=== PATIENT | male | born 1970 | race Caucasian/White ===

== ENCOUNTER 2019-09-07 15:29 | Inpatient (IN) | payer OTHER ==
--- NOTE | 2019-09-07 19:59 | HP ---
CIWA Score Nausea/Vomitin Muscle Tremors: 4-Moderate,w/Arms Extend Anxiety: 4-Mod. Anxious/Guarded Agitation: 2 Paroxysmal Sweats: No Perspiration Orientation: 1-Uncertain about Date Tacttile Disturbances: 2-Mild Itch/Numbness/Burn Auditory Disturbances: 0-None Visual Disturbances: 0-None Headache: 0-None Present CIWA-Ar Total Score: 15 - Admission Criteria OASAS Guidelines: Admission for Medically Managed Detox: Requires at least one of the followin. CIWA greater than 12 2. Seizures within the past 24 hours 3. Delirium tremens within the past 24 hours 4. Hallucinations within the past 24 hours 5. Acute intervention needed for co occurring medical disorder 6. Acute intervention needed for co occurring psychiatric disorder 7. Severe withdrawal that cannot be handled at a lower level of care (continued vomiting, continued diarrhea, abnormal vital signs) requiring intravenous medication and/or fluids 8. Admission ROS S - HPI Allergies/Adverse Reactions: Allergies Allergy/AdvReac Type Severity Reaction Status Date / Time No Known Allergies Allergy Verified 09/07/19 20:08 History of Present Illness: 49 y.o. male reports 1.5 pints vodka /day x 3 months ,latest use today , denies seizures ,blackouts , + falls while intoxicated " a few days ago " hit left knee , r elbow did not go to the hospital . 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 Loss EENT: reports: No Symptoms Reported, Other (no teeth) Respiratory: reports: See HPI Cardiac: reports: No Symptoms Reported GI: reports: Diarrhea, Nausea, Poor Appetite, Vomiting : reports: No Symptoms Reported Musculoskeletal: reports: Back Pain (chronic) Integumentary: reports: See HPI (left knee) Neuro: reports: Tremors, Unsteady Gait Endocrine: reports: See HPI Hematology: reports: No Symptoms Reported Psychiatric: reports: Agitated, Anxious, Depressed Patient History - Smoking Cessation Smoking history: Current every day smoker Have you smoked in the past 12 months: Yes Hx Chewing Tobacco Use: No Initiated information on smoking cessation: Yes 'Breaking Loose' booklet given: 09/07/19 - Substances abused Alcohol Substance route: Oral Frequency: Daily Amount used: 1 [employer] Age of first use: 18 Date of last use: 09/07/19 Admission Physical Exam S - Physical General Appearance: Yes: Disheveled, Moderate Distress, Tremorous, Irritable, Anxious HEENTM: Yes: EOMI, Normocephalic, Muffled/Hoarse Voice, Other (edentulous) Respiratory: Yes: Chest Non-Tender, Lungs Clear, Decreased Breath Sounds, No Respiratory Distress, No Accessory Muscle Use Neck: Yes: No masses,lesions,Nodules, Trachea in good position Cardiology: Yes: Regular Rhythm, Regular Rate, S1, S2, Tachycardia Abdominal: Yes: Non Tender, Soft, Surgical Scar (left upper quadrant) Back: Yes: Normal Inspection Musculoskeletal: Yes: Other (staggering gait) Extremities: Yes: Normal Range of Motion, Non-Tender, Tremors Neurological: Yes: Alert, Depressed Affect, Other (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 - Diagnostic (1) Alcohol use disorder Current Visit: Yes Status: Chronic (2) Nicotine dependence Current Visit: Yes Status: Chronic Qualifiers: Nicotine product type: cigarettes Breathalyzer - Breathalyzer Breathalyzer: 0.006 Urine Drug Screen - Test Device Lot number: [id number] Expiration date: 06/03/21 - Control Is test valid?: Yes - Results Drug screen NEGATIVE: Yes Inpatient Rehab Admission - Rehab Decision to Admit Inpatient rehab admission?: No
[2019-09-07] MEDS ORDERED: MENTHOL/PHENOL 1 EACH UD MM PRN (20:13)
[2019-09-07] MEDS ORDERED: ACETAMINOPHEN 325 MG TABLET (FP) PO PRN (20:13)
[2019-09-07] MEDS ORDERED: MAGNESIUM CITRATE 300 ML BOTTLE PO PRN (20:13)
[2019-09-07] MEDS ORDERED: IBUPROFEN 400 MG TABLET (FP) PO PRN (20:13)
[2019-09-07] MEDS ORDERED: BISMUTH SUBSALICYLATE 524 MG/30 ML UD PO PRN (20:13)
[2019-09-07] MEDS ORDERED: MAGNESIUM HYDROX 2400MG/30ML ORAL SUSPENSION 30 ML CUP PO PRN (20:13)
[2019-09-07] MEDS ORDERED: MAG HYDROX/AL HYDROX/SIMETH 30 ML UNIT-DOSE CUP PO PRN (20:13)
[2019-09-07] MEDS ORDERED: chlordiazePOXIDE HCL 25 MG CAPSULE PO ONE (20:16)
[2019-09-07 20:49] VITALS: BMI 17.4
[2019-09-07] MEDS: THIAMINE HCL 100 MG TABLET (FP) PO SCH (21:16)
[2019-09-07] MEDS: chlordiazePOXIDE HCL 25 MG CAPSULE PO SCH (23:45)
[2019-09-08] MEDS: chlordiazePOXIDE HCL 25 MG CAPSULE PO SCH ×4 (06:55→22:18)
[2019-09-08] MEDS: NICOTINE POLACRILEX 2 MG GUM BUC PRN ×6 (07:03→22:19)
[2019-09-08] MEDS: PRENATAL VITAMINS W/ FOLIC ACID TABLET (FP) PO SCH (10:28)
--- NOTE | 2019-09-08 14:36 | PN ---
S CIWA - CIWA Score Nausea/Vomitin Muscle Tremors: 2 Anxiety: 2 Agitation: 2 Paroxysmal Sweats: 1-Minimal Palms Moist Orientation: 0-Oriented Tacttile Disturbances: 1-Very Mild Itch/Numbness Auditory Disturbances: 0-None Visual Disturbances: 0-None Headache: 2-Mild CIWA-Ar Total Score: 12 BHS Progress Note (SOAP) Subjective: alert,irritable,anxious,interrupted sleep,tremor,pain in the body,nausea Objective: 09/08/19 14:35 Vital Signs Temperature 96.6 F L 09/08/19 08:30 Pulse Rate 119 H 09/08/19 08:30 Respiratory Rate 20 09/08/19 08:30 Blood Pressure 94/72 09/08/19 08:30 O2 Sat by Pulse Oximetry (%) Assessment: 09/08/19 14:36 withdrawal symptom Plan: continue detox librium regimen
[2019-09-08] MEDS: chlordiazePOXIDE HCL 25 MG CAPSULE PO PRN (19:25)
[2019-09-08] MEDS: hydrOXYzine PAMOATE 25 MG CAPSULE (FP) PO PRN (19:25)
[2019-09-08] MEDS: THIAMINE HCL 100 MG TABLET (FP) PO SCH (22:18)
[2019-09-08] MEDS: MELATONIN 5 MG TABLETS PO PRN (22:18)
[2019-09-09] MEDS: chlordiazePOXIDE HCL 25 MG CAPSULE PO SCH ×4 (06:05→22:28)
[2019-09-09] MEDS: NICOTINE POLACRILEX 2 MG GUM BUC PRN ×5 (06:06→22:29)
[2019-09-09 09:15] LABS: HEMOGLOBIN 13.4 GM/dL (11.7-16.9); MCH 35.3 pg (25.7-33.7); MCHC 34.3 g/dl (32.0-35.9); MEAN PLT VOLUME 9.3 fl (7.5-11.1); PLATELET COUNT 204 K/MM3 (134-434); RBC 3.79 M/mm3 (4.00-5.60); RDW 14.9 % (11.9-15.9); WHITE BLOOD COUNT 8.1 K/mm3 (4.0-10.0)
[2019-09-09 09:29] LABS: ALBUMIN 3.5 g/dl (3.4-5.0); BILIRUBIN,TOTAL 1.1 mg/dL (0.2-1); BLOOD UREA NITROGEN 15.1 mg/dL (7-18); CREATININE 0.8 mg/dL (0.55-1.3); POTASSIUM 4.4 mmol/L (3.5-5.1)
[2019-09-09] MEDS: PRENATAL VITAMINS W/ FOLIC ACID TABLET (FP) PO SCH (10:34)
[2019-09-09] MEDS: hydrOXYzine PAMOATE 25 MG CAPSULE (FP) PO PRN ×2 (10:34→22:29)
[2019-09-09] MEDS ORDERED: INSULIN SLIDING SCALE (NOVOLOG) 1 VIAL SQ ONE (11:50)
[2019-09-09] MEDS: INSULIN SLIDING SCALE (NOVOLOG) 1 VIAL SQ SCH ×3 (11:51→22:32)
[2019-09-09] MEDS: chlordiazePOXIDE HCL 25 MG CAPSULE PO PRN (12:40)
--- NOTE | 2019-09-09 13:16 | PN ---
S CIWA - CIWA Score Nausea/Vomitin-No Nausea/No Vomiting Muscle Tremors: 2 Anxiety: 3 Agitation: 0-Normal Activity Paroxysmal Sweats: 3 Orientation: 0-Oriented Tacttile Disturbances: 0-None Auditory Disturbances: 0-None Visual Disturbances: 0-None Headache: 2-Mild CIWA-Ar Total Score: 10 S Progress Note (SOAP) Subjective: c/o sweats, anxiety, and headache. Objective: 09/09/19 13:10 Vital Signs 09/09/19 09/09/19 06:38 08:46 Temperature 96.0 F L 96.6 F L Pulse Rate 97 H 102 H Respiratory 18 20 Rate Blood Pressure 102/73 103/69 Laboratory Last Values WBC 8.1 K/mm3 (4.0-10.0) 09/09/19 07:40 RBC 3.79 M/mm3 (4.00-5.60) L 09/09/19 07:40 Hgb 13.4 GM/dL (11.7-16.9) 09/09/19 07:40 Hct 39.0 % (35.4-49) 09/09/19 07:40 MCV 103.0 fl (80-96) H 09/09/19 07:40 MCH 35.3 pg (25.7-33.7) H 09/09/19 07:40 MCHC 34.3 g/dl (32.0-35.9) 09/09/19 07:40 RDW 14.9 % (11.9-15.9) 09/09/19 07:40 Plt Count 204 K/MM3 (134-434) 09/09/19 07:40 MPV 9.3 fl (7.5-11.1) 09/09/19 07:40 Sodium 131 mmol/L (136-145) L 09/09/19 07:40 Potassium 4.4 mmol/L (3.5-5.1) 09/09/19 07:40 Chloride 95 mmol/L (98-107) L 09/09/19 07:40 Carbon Dioxide 26 mmol/L (21-32) 09/09/19 07:40 Anion Gap 11 MMOL/L (8-16) 09/09/19 07:40 BUN 15.1 mg/dL (7-18) 09/09/19 07:40 Creatinine 0.8 mg/dL (0.55-1.3) 09/09/19 07:40 Est GFR (CKD-EPI)AfAm 121.57 09/09/19 07:40 Est GFR (CKD-EPI)NonAf 104.89 09/09/19 07:40 POC Glucometer > 600 UNITS (80-120) 09/09/19 11:42 Random Glucose 493 mg/dL (74-106) H* 09/09/19 07:40 Calcium 9.0 mg/dL (8.5-10.1) 09/09/19 07:40 Total Bilirubin 1.1 mg/dL (0.2-1) H 09/09/19 07:40 AST 24 U/L (15-37) 09/09/19 07:40 ALT 23 U/L (13-61) 09/09/19 07:40 Alkaline Phosphatase 180 U/L (45-117) H 09/09/19 07:40 Total Protein 8.0 g/dl (6.4-8.2) 09/09/19 07:40 Albumin 3.5 g/dl (3.4-5.0) 09/09/19 07:40 RPR Titer Nonreactive (NONREACTIVE) 09/09/19 07:40 Labs noted with elevated random glucose of 493mg/dl, bgm is >600mg/dl 09/09/19 13:11 Assessment: 09/09/19 13:12 AOX3, in no acute respiratory distress. Full ROM, ambulating in the unit. Withdrawal symptoms. Uncontrolled DM. No s/s of hypo/hyperglycemia noted. Pt states he takes metformin 1000mg po bid but has not been taking it for over 3months now. Will start tx and will need metformin prescription upon discharge and to follow-up with his PMD. Explained tx regimen to pt and he verbalized understanding. 09/09/19 13:12 09/09/19 13:18 Plan: continue detox. metformin 1000mg po bid, bgm ACHS/Novolog insulin sliding scale. Monitor for signs of hypo/hyperglycemia.
[2019-09-09] MEDS: metFORMIN HCL 500 MG TABLET (FP) PO SCH (17:04)
[2019-09-09] MEDS: BACITRACIN 15 GM TUBE TOPICAL OINTMENT TP SCH (18:09)
[2019-09-09] MEDS: ACETAMINOPHEN 325 MG TABLET (FP) PO PRN (18:09)
[2019-09-09] MEDS: THIAMINE HCL 100 MG TABLET (FP) PO SCH (22:28)
[2019-09-09] MEDS: MELATONIN 5 MG TABLETS PO PRN (22:32)
[2019-09-10] MEDS ORDERED: chlordiazePOXIDE HCL 10 MG CAPSULE PO PRN
[2019-09-10] MEDS: NICOTINE POLACRILEX 2 MG GUM BUC PRN ×8 (03:49→22:15)
[2019-09-10] MEDS: chlordiazePOXIDE HCL 10 MG CAPSULE PO SCH ×4 (06:00→22:15)
[2019-09-10] MEDS: metFORMIN HCL 500 MG TABLET (FP) PO SCH ×2 (06:00→16:50)
[2019-09-10] MEDS: hydrOXYzine PAMOATE 25 MG CAPSULE (FP) PO PRN ×4 (06:02→22:16)
[2019-09-10] MEDS: INSULIN SLIDING SCALE (NOVOLOG) 1 VIAL SQ SCH ×4 (06:50→22:18)
[2019-09-10] MEDS ORDERED: INSULIN SLIDING SCALE (NOVOLOG) 1 VIAL SQ ONE ×2 (07:08→11:09)
[2019-09-10] MEDS: PRENATAL VITAMINS W/ FOLIC ACID TABLET (FP) PO SCH (10:46)
[2019-09-10] MEDS: BACITRACIN 15 GM TUBE TOPICAL OINTMENT TP SCH (10:47)
--- NOTE | 2019-09-10 13:18 | PN ---
[facility] CIWA - CIWA Score Nausea/Vomitin-No Nausea/No Vomiting Muscle Tremors: 3 Anxiety: 2 Agitation: 0-Normal Activity Paroxysmal Sweats: 1-Minimal Palms Moist Orientation: 0-Oriented Tacttile Disturbances: 0-None Auditory Disturbances: 0-None Visual Disturbances: 2-Mild Sensitivity Headache: 0-None Present CIWA-Ar Total Score: 8 S Progress Note (SOAP) Subjective: 49 years old male admitted on 09/07/19 for alcohol withdrawal sx management treating with librium detox regiment feeling ok today discuss aftercare with staff prefers to go to [facility] encourage the patient to attend behavior and psychosocial therapies groups and meetings as part of recovery Objective: 09/10/19 13:19 Vital Signs Temperature 96.1 F L 09/10/19 08:55 Pulse Rate 87 09/10/19 08:55 Respiratory Rate 18 09/10/19 08:55 Blood Pressure 125/77 09/10/19 08:55 O2 Sat by Pulse Oximetry (%) Laboratory Last Values WBC 8.1 K/mm3 (4.0-10.0) 09/09/19 07:40 RBC 3.79 M/mm3 (4.00-5.60) L 09/09/19 07:40 Hgb 13.4 GM/dL (11.7-16.9) 09/09/19 07:40 Hct 39.0 % (35.4-49) 09/09/19 07:40 MCV 103.0 fl (80-96) H 09/09/19 07:40 MCH 35.3 pg (25.7-33.7) H 09/09/19 07:40 MCHC 34.3 g/dl (32.0-35.9) 09/09/19 07:40 RDW 14.9 % (11.9-15.9) 09/09/19 07:40 Plt Count 204 K/MM3 (134-434) 09/09/19 07:40 MPV 9.3 fl (7.5-11.1) 09/09/19 07:40 Sodium 131 mmol/L (136-145) L 09/09/19 07:40 Potassium 4.4 mmol/L (3.5-5.1) 09/09/19 07:40 Chloride 95 mmol/L (98-107) L 09/09/19 07:40 Carbon Dioxide 26 mmol/L (21-32) 09/09/19 07:40 Anion Gap 11 MMOL/L (8-16) 09/09/19 07:40 BUN 15.1 mg/dL (7-18) 09/09/19 07:40 Creatinine 0.8 mg/dL (0.55-1.3) 09/09/19 07:40 Est GFR (CKD-EPI)AfAm 121.57 09/09/19 07:40 Est GFR (CKD-EPI)NonAf 104.89 09/09/19 07:40 POC Glucometer 347 UNITS (80-120) 09/10/19 11:07 Random Glucose 493 mg/dL (74-106) H* 09/09/19 07:40 Calcium 9.0 mg/dL (8.5-10.1) 09/09/19 07:40 Total Bilirubin 1.1 mg/dL (0.2-1) H 09/09/19 07:40 AST 24 U/L (15-37) 09/09/19 07:40 ALT 23 U/L (13-61) 09/09/19 07:40 Alkaline Phosphatase 180 U/L (45-117) H 09/09/19 07:40 Total Protein 8.0 g/dl (6.4-8.2) 09/09/19 07:40 Albumin 3.5 g/dl (3.4-5.0) 09/09/19 07:40 RPR Titer Nonreactive (NONREACTIVE) 09/09/19 07:40 lab noted 09/10/19 13:23 average 20 units of insulin sq coverage begin glimepiride 4 mg po am Assessment: 09/10/19 13:23 alcohol withdrawal Plan: librium regiment
[2019-09-10] MEDS: THIAMINE HCL 100 MG TABLET (FP) PO SCH (22:15)
[2019-09-10] MEDS: MELATONIN 5 MG TABLETS PO PRN (22:15)
[2019-09-11] MEDS: hydrOXYzine PAMOATE 25 MG CAPSULE (FP) PO PRN ×5 (05:18→22:06)
[2019-09-11] MEDS: chlordiazePOXIDE HCL 10 MG CAPSULE PO SCH ×2 (05:18→17:36)
[2019-09-11] MEDS: metFORMIN HCL 500 MG TABLET (FP) PO SCH ×2 (06:32→17:37)
[2019-09-11] MEDS: INSULIN SLIDING SCALE (NOVOLOG) 1 VIAL SQ SCH ×4 (06:33→22:07)
[2019-09-11] MEDS ORDERED: INSULIN SLIDING SCALE (NOVOLOG) 1 VIAL SQ ONE (06:33)
[2019-09-11] MEDS: GLIMEPIRIDE 4 MG TABLET PO SCH (08:19)
[2019-09-11] MEDS: NICOTINE POLACRILEX 2 MG GUM BUC PRN ×6 (08:54→22:13)
--- NOTE | 2019-09-11 09:21 | PN ---
S CIWA - CIWA Score Nausea/Vomitin-No Nausea/No Vomiting Muscle Tremors: 1-None Visible, but [place] Anxiety: 3 Agitation: 0-Normal Activity Paroxysmal Sweats: 1-Minimal Palms Moist Orientation: 0-Oriented Tacttile Disturbances: 0-None Auditory Disturbances: 0-None Visual Disturbances: 1-Very Mild Sensitivity Headache: 0-None Present CIWA-Ar Total Score: 6 BHS Progress Note (SOAP) Subjective: 49 years old male admitted on 09/07/19 for alcohol withdrawal sx management treating with librium detox regiment feeling better today sitting on the edge of the bed eating breakfast alert oriented x 3 speech clearly participating in therapeutic groups and meetings anxious about leaving a protective sober environment Objective: 09/11/19 09:23 Vital Signs Temperature 96.2 F L 09/11/19 06:52 Pulse Rate 64 09/11/19 06:52 Respiratory Rate 18 09/11/19 06:52 Blood Pressure 119/78 09/11/19 06:52 O2 Sat by Pulse Oximetry (%) Laboratory Last Values WBC 8.1 K/mm3 (4.0-10.0) 09/09/19 07:40 RBC 3.79 M/mm3 (4.00-5.60) L 09/09/19 07:40 Hgb 13.4 GM/dL (11.7-16.9) 09/09/19 07:40 Hct 39.0 % (35.4-49) 09/09/19 07:40 MCV 103.0 fl (80-96) H 09/09/19 07:40 MCH 35.3 pg (25.7-33.7) H 09/09/19 07:40 MCHC 34.3 g/dl (32.0-35.9) 09/09/19 07:40 RDW 14.9 % (11.9-15.9) 09/09/19 07:40 Plt Count 204 K/MM3 (134-434) 09/09/19 07:40 MPV 9.3 fl (7.5-11.1) 09/09/19 07:40 Sodium 131 mmol/L (136-145) L 09/09/19 07:40 Potassium 4.4 mmol/L (3.5-5.1) 09/09/19 07:40 Chloride 95 mmol/L (98-107) L 09/09/19 07:40 Carbon Dioxide 26 mmol/L (21-32) 09/09/19 07:40 Anion Gap 11 MMOL/L (8-16) 09/09/19 07:40 BUN 15.1 mg/dL (7-18) 09/09/19 07:40 Creatinine 0.8 mg/dL (0.55-1.3) 09/09/19 07:40 Est GFR (CKD-EPI)AfAm 121.57 09/09/19 07:40 Est GFR (CKD-EPI)NonAf 104.89 09/09/19 07:40 POC Glucometer 389 UNITS (80-120) 09/11/19 05:17 Random Glucose 493 mg/dL (74-106) H* 09/09/19 07:40 Calcium 9.0 mg/dL (8.5-10.1) 09/09/19 07:40 Total Bilirubin 1.1 mg/dL (0.2-1) H 09/09/19 07:40 AST 24 U/L (15-37) 09/09/19 07:40 ALT 23 U/L (13-61) 09/09/19 07:40 Alkaline Phosphatase 180 U/L (45-117) H 09/09/19 07:40 Total Protein 8.0 g/dl (6.4-8.2) 09/09/19 07:40 Albumin 3.5 g/dl (3.4-5.0) 09/09/19 07:40 RPR Titer Nonreactive (NONREACTIVE) 09/09/19 07:40 lab noted long history of diabetes treated with metformin and glimepiride finger stick with insulin coverage glimepiride resume on 09/10/19 Assessment: 09/11/19 09:27 alcohol withdrawal Plan: librium regiment
[2019-09-11] MEDS: PRENATAL VITAMINS W/ FOLIC ACID TABLET (FP) PO SCH (10:12)
[2019-09-11] MEDS: BACITRACIN 15 GM TUBE TOPICAL OINTMENT TP SCH (10:13)
[2019-09-11] MEDS: ACETAMINOPHEN 325 MG TABLET (FP) PO PRN (22:05)
[2019-09-11] MEDS: THIAMINE HCL 100 MG TABLET (FP) PO SCH (22:05)
[2019-09-11] MEDS: MELATONIN 5 MG TABLETS PO PRN (22:06)
[2019-09-12] MEDS ORDERED: chlordiazePOXIDE HCL 10 MG CAPSULE PO ONE (05:00)
[2019-09-12] MEDS: metFORMIN HCL 500 MG TABLET (FP) PO SCH (06:15)
[2019-09-12] MEDS: GLIMEPIRIDE 4 MG TABLET PO SCH (06:16)
[2019-09-12] MEDS: hydrOXYzine PAMOATE 25 MG CAPSULE (FP) PO PRN (06:18)
[2019-09-12] MEDS: NICOTINE POLACRILEX 2 MG GUM BUC PRN (06:19)
[2019-09-12 06:38] VITALS: BP 113/75; PULSE 63; TEMP 96.9
[2019-09-12] MEDS: INSULIN SLIDING SCALE (NOVOLOG) 1 VIAL SQ SCH (06:50)
--- NOTE | 2019-09-12 15:20 | DS ---
[facility] Detox Discharge Summary Admission Date: 09/07/19 Discharge Date: 09/12/19 - History Present History: Alcohol Dependence Additional Comments: 49 years old male admitted on 09/07/19 for alcohol withdrawal sx management treated with librium detox regiment Mr Delgado has completed librium regiment and is tolerated well alert oriented x 3 cardiac s1s2 regular rate rhythm respiratory clear lungs bilaterally on auscultation skin warm and dry Pertinent Past History: time for discharge 30 minutes - Physical Exam Results Vital Signs: Vital Signs Temperature 96.9 F L 09/12/19 06:37 Pulse Rate 63 09/12/19 06:37 Respiratory Rate 18 09/12/19 06:37 Blood Pressure 113/75 09/12/19 06:37 O2 Sat by Pulse Oximetry (%) Pertinent Admission Physical Exam Findings: alcohol withdrawal Vital Signs Temperature 96.9 F L 09/12/19 06:37 Pulse Rate 63 09/12/19 06:37 Respiratory Rate 18 09/12/19 06:37 Blood Pressure 113/75 09/12/19 06:37 O2 Sat by Pulse Oximetry (%) Laboratory Last Values WBC 8.1 K/mm3 (4.0-10.0) 09/09/19 07:40 RBC 3.79 M/mm3 (4.00-5.60) L 09/09/19 07:40 Hgb 13.4 GM/dL (11.7-16.9) 09/09/19 07:40 Hct 39.0 % (35.4-49) 09/09/19 07:40 MCV 103.0 fl (80-96) H 09/09/19 07:40 MCH 35.3 pg (25.7-33.7) H 09/09/19 07:40 MCHC 34.3 g/dl (32.0-35.9) 09/09/19 07:40 RDW 14.9 % (11.9-15.9) 09/09/19 07:40 Plt Count 204 K/MM3 (134-434) 09/09/19 07:40 MPV 9.3 fl (7.5-11.1) 09/09/19 07:40 Sodium 131 mmol/L (136-145) L 09/09/19 07:40 Potassium 4.4 mmol/L (3.5-5.1) 09/09/19 07:40 Chloride 95 mmol/L (98-107) L 09/09/19 07:40 Carbon Dioxide 26 mmol/L (21-32) 09/09/19 07:40 Anion Gap 11 MMOL/L (8-16) 09/09/19 07:40 BUN 15.1 mg/dL (7-18) 09/09/19 07:40 Creatinine 0.8 mg/dL (0.55-1.3) 09/09/19 07:40 Est GFR (CKD-EPI)AfAm 121.57 09/09/19 07:40 Est GFR (CKD-EPI)NonAf 104.89 09/09/19 07:40 POC Glucometer 327 UNITS (80-120) 09/12/19 06:14 Random Glucose 493 mg/dL (74-106) H* 09/09/19 07:40 Calcium 9.0 mg/dL (8.5-10.1) 09/09/19 07:40 Total Bilirubin 1.1 mg/dL (0.2-1) H 09/09/19 07:40 AST 24 U/L (15-37) 09/09/19 07:40 ALT 23 U/L (13-61) 09/09/19 07:40 Alkaline Phosphatase 180 U/L (45-117) H 09/09/19 07:40 Total Protein 8.0 g/dl (6.4-8.2) 09/09/19 07:40 Albumin 3.5 g/dl (3.4-5.0) 09/09/19 07:40 RPR Titer Nonreactive (NONREACTIVE) 09/09/19 07:40 T.pallidum Ab Interpret Cancelled 09/09/19 07:40 lab noted long history of diabetes patient will continue follow up with primary endocrainologist for glucose level - Treatment Hospital Course: Detox Protocol Followed, Detoxed Safely, Responded well, Discharged Condition Good, Rehab Referral Accepted Patient has Accepted a [facility] Referral [facility]: [facility] - Medication Discharge Medications: Ambulatory Orders NK [No Known Home Medication] 09/07/19 - Diagnosis (1) Diabetes Status: Acute Qualifiers: Diabetes mellitus type: type 2 Diabetes mellitus shelter insulin use: with shelter use Diabetes mellitus complication status: with other specified complication Qualified Code(s): E11.69 - Type 2 diabetes mellitus with other specified complication; Z79.4 - assisted (current) use of insulin (2) Alcohol use disorder Status: Acute (3) Nicotine dependence Status: Acute Qualifiers: Nicotine product type: cigarettes Substance use status: in withdrawal Qualified Code(s): F17.213 - Nicotine dependence, cigarettes, with withdrawal - AMA Did Patient Leave Against Medical Advice: No CIWA Score - CIWA Score Nausea/Vomitin-No Nausea/No Vomiting Muscle Tremors: None Anxiety: 2 Agitation: 0-Normal Activity Paroxysmal Sweats: No Perspiration Orientation: 0-Oriented Tacttile Disturbances: 0-None Auditory Disturbances: 0-None Visual Disturbances: 0-None Headache: 0-None Present CIWA-Ar Total Score: 2
== END 2019-09-12 09:02 | disposition home or self-care (01) | DRG 775 ==
LOC: YASAS 15:29 → Y3N 20:16
PROVIDERS: ADMIT Allergy & Immunology; ATTEND Allergy & Immunology
PROC: HZ2ZZZZ Detoxification Services for Substance Abuse Treatment (ICD-10-PCS; principal; 2019-09-07)
DX: F10.230 Alcohol dependence with withdrawal, uncomplicated (principal); F17.210 Nicotine dependence, cigarettes, uncomplicated; J44.9 Chronic obstructive pulmonary disease, unspecified; E11.65 Type 2 diabetes mellitus with hyperglycemia; Z79.4 Long term (current) use of insulin; Z87.39 Personal history of other diseases of the musculoskeletal system and connective tissue; Z90.81 Acquired absence of spleen
CPT/HCPCS: 36415; 80053; 82962; 85027; 86593

== ENCOUNTER 2019-09-07 22:08 | Emergency (ER) | payer OTHER ==
[2019-09-07 22:18] VITALS: TEMP 98.3; BMI 18.4
--- NOTE | 2019-09-07 22:47 | PDOC ---
History of Present Illness - General Chief Complaint: Injury Stated Complaint: RT ELBOW PAIN Time Seen by Provider: 09/07/19 22:46 Past History - Past Medical History Allergies/Adverse Reactions: Allergies Allergy/AdvReac Type Severity Reaction Status Date / Time No Known Allergies Allergy Verified 09/07/19 22:15 Home Medications: Ambulatory Orders NK [No Known Home Medication] 09/07/19 Asthma: No Cardiac Disorders: No COPD: No Diabetes: Yes GI Disorders: No Disorders: No Seizures: No - Surgical History Abdominal Surgery: Yes (SPLEENECTOMY) - Psycho Social/Smoking Cessation Hx Smoking History: Unknown if ever smoked Have you smoked in the past 12 months: Yes Number of Cigarettes Smoked Daily: 10 'Breaking Loose' booklet given: 09/07/19 Hx Alcohol Use: Yes *Physical Exam - Vital Signs Last Vital Signs Temp Pulse Resp BP Pulse Ox 98.3 F 120 H 18 100/70 100 09/07/19 22:13 09/07/19 22:13 09/07/19 22:13 09/07/19 22:13 09/07/19 22:13 09/07/19 23:24 Last name is pronounced, "[id number]" 49 y/o male PMH DM, COPD, sciatica, 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 Pt was sent in from [facility] etoh detox for RIGHT UE/elbow deformity. He states that he was drinking his usual daily amount of 1/2 pint vodka when he blacked out. He woke up a short time after (cannot recall how much) and had lower back pain, RIGHT elbow pain, and LEFT knee abrasion. He says this never happened before. He denies being assaulted. He reports he has never experienced w/drawl or DT. Denies FNVD, chills, and constipation No new meds/herbs, drugs/supplements No recent illness, sick contacts, or recent travel No LOC, tongue biting, tremor, aura Fam hx: Mother, paranoid schizophrenia Surgical hx: splenectomy, c4 disc repair Social hx: 1/2 ppd for 30 years contemplative state of cessations; 1/2 pint vodka daily; occasional marijuana use Sexual hx: Not sexually active. Has one 16 y/o daughter. No h/o STI. CIWA 5: +1 mild anx, and +4 tremors with outstretched hands REVIEW OF SYSTEMS CONSTITUTIONAL: Absent: fever, chills, diaphoresis, generalized weakness, malaise, loss of appetite, weight change HEENT: Absent: rhinorrhea, nasal congestion, throat pain, throat swelling, difficulty swallowing, mouth swelling, ear pain, eye pain, visual changes CARDIOVASCULAR: Absent: chest pain, syncope, palpitations, irregular heart rate, lightheadedness, peripheral edema RESPIRATORY: Absent: cough, shortness of breath, dyspnea with exertion, orthopnea, wheezing, stridor, hemoptysis GASTROINTESTINAL: Absent: abdominal pain, abdominal distension, nausea, vomiting, diarrhea, constipation, melena, hematochezia GENITOURINARY: Absent: dysuria, frequency, urgency, hesitancy, hematuria, flank pain, genital pain MUSCULOSKELETAL: Absent: myalgia, arthralgia, joint swelling, back pain, neck pain SKIN: LEFT knee pain Absent: rash, itching, pallor HEMATOLOGIC/IMMUNOLOGIC: Absent: easy bleeding, easy bruising, lymphadenopathy, frequent infections ENDOCRINE: Absent: unexplained weight gain, unexplained weight loss, heat intolerance, cold intolerance NEUROLOGIC: Absent: headache, focal weakness or paresthesias, dizziness, unsteady gait, seizure, mental status changes, bladder or bowel incontinence PSYCHIATRIC: Absent: anxiety, depression, suicidal or homicidal ideation, hallucinations. GENERAL: AO x3 NAD HEAD: NCAT EYES: [place], EOMI, sclera anicteric, conjunctiva clear. No ptosis. ENT: Ears normal, nares patent, oropharynx clear without exudates, DRY mucous membranes. NECK: Trachea midline, full range of motion, supple. LUNGS: Diffuse wheezes in ant and post lung caballero, no crackles, no accessory muscle use. HEART: Soft heart sounds. RRR, S1, S2 without murmur, rub or gallop. ABDOMEN: Soft, nontender, nondistended, normoactive bowel sounds, no guarding, no rebound, no hepatosplenomegaly, no masses. EXTREMITIES: RIGHT elbow deformity: swelling at olecranon. LEFT knee abrasion, no dc, healed/red-brown appearance . 2+ pulses, warm, well-perfused, no edema. NEUROLOGICAL: Cranial nerves II through XII grossly intact. Strength 5/5 in UE and LE in both distal and proximal flexors. Brachial reflex 2+ BL. Patellar reflex 2+ BL. No dysdiadochokinesia. FTN POSITIVE. Normal speech. Gait no appreciated. PSYCH: Normal mood, normal affect. SKIN: LEFT forearm cross tattoo. Warm, dry, normal turgor, no rashes or lesions noted # Mechanical fall VS etoh intoxication VS - CBC, CMP, UA, EKG - PT/INR, type & screen - NS 1 L bolus - RIGHT elbow xray - CT head - CT c spine - Tylenol 650 mg po once 09/08/19 01:00 Pt complaining of tremors. 5 mg chlordiazepoxide provided Repeat HR 87 09/08/19 05:14 Imaging with no acute changes Plan to dc so pt can cont. care at [facility] Treatment Course - LABORATORY CBC & Chemistry Diagram: 09/08/19 00:20 09/08/19 04:10 Discharge - Discharge Information Problems reviewed: Yes Clinical Impression/Diagnosis: Alcohol use disorder Fall Qualifiers: Encounter type: subsequent encounter Qualified Code(s): W19.XXXD - Unspecified fall, subsequent encounter Disposition: HOME - Admission No - Additional Discharge Information Plan of Treatment: YOUR VISIT You came to the hospital because you were experiencing pain from a fall. You were seen in the emergency department for care of these symptoms. You were given medication for pain and had some imaging performed, which as all negative. You are now stable and may return home. MEDICATIONS Please continue to take your home medications as prescribed. ADDITIONAL CARE Please make an appointment to see your primary care provider week from today. ADDITIONAL INFORMATION Please call 911 or come directly to the emergency department if you experience recurrence of the symptoms that brought you to the hospital, unusual headache, vision change, shortness of breath, chest pain, numbness, tingling, loss of alertness/awareness, loss of function, unusual bleeding or any alarming symptoms. - Follow up/Referral - Patient Discharge Instructions - Post Discharge Activity
--- NOTE | 2019-09-07 23:17 | PDOC ---
*Physical Exam - Vital Signs Last Vital Signs Temp Pulse Resp BP Pulse Ox 98.3 F 120 H 18 100/70 100 09/07/19 22:13 09/07/19 22:13 09/07/19 22:13 09/07/19 22:13 09/07/19 22:13 ED Treatment Course - LABORATORY CBC & Chemistry Diagram: 09/08/19 00:20 09/08/19 04:10 Medical Decision Making - Medical Decision Making 09/07/19 23:12 Patient seen as pre-attending with Dr. Goodson (Resident) and Dr. Garcia (Attending) 49 y/o male here from [facility] c/o L elbow pain Actively intoxicated @ presentation - reports fall [address] head/C-spine in addition to L elbow (protruding olecranon on PE) No known h/o DT's' last alcohol intake was 1/2 pint vodka earlier today Tachycardic (HR 120) @ triage, HR 80's s/p analgesia w/Tylenol 09/08/19 01:08 S/p Librium Resting comfortably 09/08/19 05:[address]/C-spine negative My read of elbow X-ray shows no dislocation, no anterior sail sign/posterior fat pad D/C to [facility] Discharge - Discharge Information Problems reviewed: Yes Clinical Impression/Diagnosis: Alcohol use disorder Fall Qualifiers: Encounter type: subsequent encounter Qualified Code(s): W19.XXXD - Unspecified fall, subsequent encounter Condition: Stable Disposition: HOME - Additional Discharge Information Plan of Treatment: YOUR VISIT You came to the hospital because you were experiencing pain from a fall. You were seen in the emergency department for care of these symptoms. You were given medication for pain and had some imaging performed, which as all negative. You are now stable and may return home. MEDICATIONS Please continue to take your home medications as prescribed. ADDITIONAL CARE Please make an appointment to see your primary care provider week from today. ADDITIONAL INFORMATION Please call 911 or come directly to the emergency department if you experience recurrence of the symptoms that brought you to the hospital, unusual headache, vision change, shortness of breath, chest pain, numbness, tingling, loss of alertness/awareness, loss of function, unusual bleeding or any alarming symptoms. - Follow up/Referral - Patient Discharge Instructions - Post Discharge Activity
[2019-09-07] MEDS ORDERED: SODIUM CHLORIDE 1,000 ML IV STA (23:22)
[2019-09-08] MEDS ORDERED: ACETAMINOPHEN 325 MG TABLET (FP) PO ONE (00:36)
[2019-09-08] MEDS ORDERED: ACETAMINOPHEN 325 MG TABLET (FP) ONE (00:36)
[2019-09-08] MEDS ORDERED: chlordiazePOXIDE 5 MG CAPSULE PO ONE (00:43)
[2019-09-08 00:56] LABS: BASO % 0.8 % (0-2.0); EOS % 1.1 % (0-4.5); HEMATOCRIT 38.7 % (35.4-49); HEMOGLOBIN 13.4 GM/dL (11.7-16.9); LYMPH % 20.4 % (8-40); MCH 35.4 pg (25.7-33.7); MCHC 34.6 g/dl (32.0-35.9); MEAN CELL VOLUME 102.2 fl (80-96); MEAN PLT VOLUME 9.3 fl (7.5-11.1); MONO % 15.9 % (3.8-10.2); NEUT % 61.8 % (42.8-82.8); PLATELET COUNT 204 K/MM3 (134-434); RBC 3.78 M/mm3 (4.00-5.60); RDW 15.3 % (11.9-15.9); WHITE BLOOD COUNT 10.6 K/mm3 (4.0-10.0)
[2019-09-08 01:07] LABS: INR 0.94 (0.83-1.09); PROTHROMBIN TIME (PATIENT) 11.1 SEC (9.7-13.0)
--- NOTE | 2019-09-08 01:47 | PDOC ---
Attending Attestation - Resident Resident Name: Tristian Xavier - ED Attending Attestation I have performed the following: I have examined & evaluated the patient, The case was reviewed & discussed with the resident, I agree w/resident's findings & plan, Exceptions are as noted - HPI HPI: 09/08/19 01:43 See resident HPI - Physicial Exam PE: 09/08/19 01:44 Agree with documented exam - Medical Decision Making 09/08/19 01:48 49M DM, COPD, CVA, etoh, sent from [facility] with RUE pain, swelling, persistent pain s/p fall 3 days ago f/u imaging, labs analgesia re-eval dispo per clinical course
[2019-09-08] MEDS ORDERED: chlordiazePOXIDE 5 MG CAPSULE ONE (02:37)
[2019-09-08 06:37] VITALS: BP 127/94; PULSE 105
--- NOTE | 2019-09-08 11:08 | EKG ---
Test Reason : Blood Pressure : / mmHG Vent. Rate : 091 BPM Atrial Rate : 091 BPM P-R Int : 158 ms QRS Dur : 084 ms QT Int : 364 ms P-R-T Axes : 060 065 062 degrees QTc Int : 447 ms NORMAL SINUS RHYTHM PEAKED T WAVES CLINICAL CORRELATION IS RECOMMENDED NO PREVIOUS ECGS AVAILABLE Confirmed by TANIA BRYAN MD ([id number]) on 09/08/2019 11:08:19 AM Referred By: Confirmed By:TANIA BRYAN MD
== END 2019-09-08 06:36 | disposition home or self-care (01) ==
LOC: JER 22:08
PROC: 3E0337Z Introduction of Electrolytic and Water Balance Substance into Peripheral Vein, Percutaneous Approach (ICD-10-PCS; principal; 2019-09-07)
DX: F10.10 Alcohol abuse, uncomplicated (principal); M54.5 Low back pain; S80.212A Abrasion, left knee, initial encounter; W19.XXXA Unspecified fall, initial encounter; Y93.89 Activity, other specified; Y92.89 Other specified places as the place of occurrence of the external cause; Y99.8 Other external cause status; J44.9 Chronic obstructive pulmonary disease, unspecified; E11.9 Type 2 diabetes mellitus without complications; F17.210 Nicotine dependence, cigarettes, uncomplicated; I69.854 Hemiplegia and hemiparesis following other cerebrovascular disease affecting left non-dominant side
CPT/HCPCS: 36415; 70450-TC; 72125-TC; 73070-TC-RT-FY; 85025; 85610; 86850; 86900; 86901; 93005; 93010; 96360; 99285-25; J7030

== ENCOUNTER 2022-04-23 11:16 | Inpatient (IN) | payer OTHER ==
[2022-04-23 12:56] VITALS: BMI 15.3
[2022-04-23] MEDS ORDERED: BENZOCAINE/MENTHOL (CHLORASEPTIC ) LOZENGE MM PRN (13:52)
[2022-04-23] MEDS ORDERED: ACETAMINOPHEN 325 MG TABLET (FP) PO PRN ×2 (13:52)
[2022-04-23] MEDS ORDERED: BISMUTH SUBSALICYLATE 262 MG/15 ML BTL PO PRN (13:52)
[2022-04-23] MEDS ORDERED: MAGNESIUM CITRATE 300 ML BOTTLE PO PRN (13:52)
[2022-04-23] MEDS ORDERED: MAG HYDROX/AL HYDROX/SIMETH 30 ML UNIT-DOSE CUP PO PRN (13:52)
[2022-04-23] MEDS ORDERED: IBUPROFEN 600 MG TABLET (FP) PO PRN (13:52)
[2022-04-23] MEDS ORDERED: ONDANSETRON *ODT* 4 MG TABLET SL PRN (13:52)
[2022-04-23] MEDS ORDERED: LOPERAMIDE HCL 2 MG CAPSULE PO PRN (13:52)
[2022-04-23] MEDS ORDERED: DICYCLOMINE HCL 10 MG CAPSULE PO PRN (13:52)
[2022-04-23] MEDS ORDERED: IBUPROFEN 400 MG TABLET (FP) PO PRN (13:52)
[2022-04-23] MEDS ORDERED: NALOXONE HCL (KLOXXADO) 8 MG SPRAY NS PRN (13:52)
[2022-04-23] MEDS ORDERED: NICOTINE 10 MG CARTRIDGE (INHALER) IH PRN (13:52)
[2022-04-23] MEDS ORDERED: MAGNESIUM HYDROX 2400MG/30ML ORAL SUSPENSION 30 ML CUP PO PRN (13:52)
[2022-04-23] MEDS ORDERED: methaDONE HCL 10 MG TABLET (FOR DETOX USE ONLY) PO ONE (13:52)
[2022-04-23] MEDS ORDERED: cloNIDine HCL 0.1 MG TABLET PO PRN (13:52)
[2022-04-23] MEDS: PRENATAL VITAMINS W/ FOLIC ACID TABLET (FP) PO SCH (14:00)
[2022-04-23] MEDS: chlordiazePOXIDE HCL 25 MG CAPSULE PO SCH ×2 (17:36→22:18)
[2022-04-23] MEDS ORDERED: MELATONIN 5 MG TABLETS PO SCH (22:00)
[2022-04-23] MEDS: THIAMINE HCL 100 MG TABLET (FP) PO SCH (22:18)
[2022-04-23] MEDS: NICOTINE POLACRILEX 2 MG GUM BUC PRN (22:20)
[2022-04-24] MEDS: chlordiazePOXIDE HCL 25 MG CAPSULE PO SCH (05:09)
[2022-04-24] MEDS: NICOTINE POLACRILEX 2 MG GUM BUC PRN ×5 (08:38→22:11)
[2022-04-24 09:55] LABS: HEMOGLOBIN 13.7 GM/dL (11.7-16.9); MCH 31.6 pg (25.7-33.7); MCHC 34.1 g/dl (32.0-35.9); MEAN CELL VOLUME 92.5 fl (80-96); MEAN PLT VOLUME 8.2 fl (7.5-11.1); PLATELET COUNT 416 10^3/uL (134-434); RBC 4.33 M/mm3 (4.00-5.60); RDW 14.6 % (11.9-15.9); WHITE BLOOD COUNT 12.2 K/mm3 (4.0-10.0)
[2022-04-24 10:07] LABS: CALCIUM 9.7 mg/dL (8.5-10.1)
[2022-04-24 10:09] LABS: ALBUMIN 3.6 g/dl (3.4-5.0); BLOOD UREA NITROGEN 7.5 mg/dL (7-18)
[2022-04-24] MEDS: METHOCARBAMOL 500 MG TABLET PO PRN (10:11)
[2022-04-24] MEDS: PRENATAL VITAMINS W/ FOLIC ACID TABLET (FP) PO SCH (10:11)
[2022-04-24 10:12] LABS: CREATININE 0.7 mg/dL (0.55-1.3)
[2022-04-24 10:13] LABS: TOT PROT 7.2 g/dl (6.4-8.2)
[2022-04-24 10:14] LABS: BILIRUBIN,TOTAL 0.6 mg/dL (0.2-1)
[2022-04-24] MEDS: diazePAM 5 MG TABLET PO SCH ×3 (10:42→22:04)
[2022-04-24] MEDS: INSULIN SLIDING SCALE (NOVOLOG) 1 VIAL SQ SCH ×3 (11:39→22:11)
[2022-04-24] MEDS: diazePAM 5 MG TABLET PO PRN ×2 (13:23→19:16)
[2022-04-24] MEDS ORDERED: ALBUTEROL SO4 0.083% IH SOL 2.5 MG/3 ML VIAL.NEB. NEB PRN (13:56)
[2022-04-24] MEDS ORDERED: SUVOREXANT 10 MG TABLET PO PRN (22:00)
[2022-04-24] MEDS: THIAMINE HCL 100 MG TABLET (FP) PO SCH (22:04)
[2022-04-25] MEDS: METHOCARBAMOL 500 MG TABLET PO PRN (00:48)
[2022-04-25] MEDS: diazePAM 5 MG TABLET PO PRN ×2 (02:30→12:15)
[2022-04-25] MEDS ORDERED: chlordiazePOXIDE HCL 25 MG CAPSULE PO SCH (05:00)
[2022-04-25] MEDS: diazePAM 5 MG TABLET PO SCH ×2 (05:52→10:17)
[2022-04-25 06:34] VITALS: RESP 17
[2022-04-25] MEDS: INSULIN SLIDING SCALE (NOVOLOG) 1 VIAL SQ SCH ×2 (07:17→11:09)
[2022-04-25] MEDS ORDERED: methaDONE HCL 10 MG TABLET (FOR DETOX USE ONLY) PO ONE (10:00)
[2022-04-25] MEDS: PRENATAL VITAMINS W/ FOLIC ACID TABLET (FP) PO SCH (10:17)
[2022-04-25] MEDS: NICOTINE POLACRILEX 2 MG GUM BUC PRN ×2 (10:21→12:17)
[2022-04-25 13:31] VITALS: BP 93/64; PULSE 98; TEMP 97.1
[2022-04-26] MEDS ORDERED: chlordiazePOXIDE HCL 10 MG CAPSULE PO SCH (05:00)
[2022-04-26] MEDS ORDERED: diazePAM 5 MG TABLET PO SCH (06:00)
[2022-04-27] MEDS ORDERED: chlordiazePOXIDE HCL 10 MG CAPSULE PO SCH (05:00)
[2022-04-27] MEDS ORDERED: diazePAM 5 MG TABLET PO SCH (06:00)
[2022-04-27] MEDS ORDERED: methaDONE HCL 10 MG TABLET (FOR DETOX USE ONLY) PO ONE (10:00)
[2022-04-28] MEDS ORDERED: chlordiazePOXIDE HCL 10 MG CAPSULE PO ONE (05:00)
[2022-04-28] MEDS ORDERED: diazePAM 5 MG TABLET PO ONE (06:00)
== END 2022-04-25 13:58 | disposition left against medical advice (07) | DRG 770 ==
LOC: YASAS 11:16 → Y6N 15:52
PROVIDERS: ADMIT Allergy & Immunology; ATTEND Surgery
PROC: HZ2ZZZZ Detoxification Services for Substance Abuse Treatment (ICD-10-PCS; principal; 2022-04-23)
DX: F11.23 Opioid dependence with withdrawal (principal); F10.230 Alcohol dependence with withdrawal, uncomplicated; F17.210 Nicotine dependence, cigarettes, uncomplicated; F19.282 Other psychoactive substance dependence with psychoactive substance-induced sleep disorder; F19.280 Other psychoactive substance dependence with psychoactive substance-induced anxiety disorder; F19.24 Other psychoactive substance dependence with psychoactive substance-induced mood disorder; F41.9 Anxiety disorder, unspecified; F32.A Depression, unspecified; J44.9 Chronic obstructive pulmonary disease, unspecified; E11.9 Type 2 diabetes mellitus without complications; M54.30 Sciatica, unspecified side; R26.89 Other abnormalities of gait and mobility; Z99.89 Dependence on other enabling machines and devices
CPT/HCPCS: 36415; 80053; 82962; 85027; 86780